=== PATIENT | male | born 1985 | race African-American/Black ===

== ENCOUNTER 2020-03-15 09:00 | Emergency (ER) | payer OTHER ==
[~2020-03-15] VITALS: Ht 188 cm; Wt 149.0 kg
[2020-03-15] MEDS ORDERED: ORPH100T PO (09:19)
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
[2020-03-15 09:30] VITALS: BP 122/92
== END 2020-03-15 09:33 | disposition home or self-care (01) ==
LOC: ER 09:00
DX: S16.1XXA Strain of muscle, fascia and tendon at neck level, initial encounter (principal); M54.6 Pain in thoracic spine; V49.49XA Driver injured in collision with other motor vehicles in traffic accident, initial encounter; Y92.488 Other paved roadways as the place of occurrence of the external cause; Y93.89 Activity, other specified; Y99.8 Other external cause status
CPT/HCPCS: 99283